=== PATIENT | female | born 1970 | race Caucasian/White ===

== ENCOUNTER → 2023-09-04 13:06 | Outpatient (CLI) | payer OTHER, SELFPAY ==
--- NOTE | 2023-09-04 13:08 | DI.MRI.S_ITS ---
PROCEDURE: MR KNEE RT WO CON INDICATIONS: rIGHT KNEE PAIN TECHNIQUE: Noncontrast sagittal PD fast spin echo and T2 fast spin echo with fat saturation, sagittal 3-D FLASH with fat saturation; coronal T1 spin echo and PD fast spin echo with fat saturation, and axial PD fast spin echo with fat saturation through the knee. COMPARISON: None. FINDINGS: Image quality: Excellent. Menisci: Peripheral displacement of medial meniscus bowing medial collateral ligament is seen. Complex tear involving body and posterior horn of medial meniscus is seen extending to both superior and inferior articulating surfaces. The lateral meniscus is intact.. The meniscal root ligaments appear intact. Cruciate ligaments: The anterior and posterior cruciate ligaments appear intact. Medial structures: The medial collateral ligament appears thickened with intrasubstance T2 hyperintense signal and surrounding soft tissue edema. Visualized portions of the pes anserinus tendons appear normal. No abnormal bursal fluid. Lateral structures: The lateral collateral ligament is thickened with intrasubstance T2 hyperintense signal. The long and short heads of the biceps femoris tendon appear intact. The popliteus tendon appears normal. Iliotibial band appears normal. Anterior structures: The quadriceps and patellar tendons appear intact. Patellar alignment is normal. No femoral trochlear dysplasia or ventral trochlear prominence. No edema in the infrapatellar fat pad. Bones and cartilage: No bone marrow contusions or fractures. 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 Joint space: There is moderate knee joint fluid. No Marcial's cyst. Normal appearing synovial plicae are incidentally noted. IMPRESSION: 1. Complex tear involving body and posterior horn of medial meniscus extending to both superior and inferior articulating surfaces. The lateral meniscus is intact. 2. The cruciate ligaments are intact. 3. Low to moderate grade MCL and LCL sprain/partial-thickness tear. No full-thickness ligament rupture. 4. [id number] tricompartmental osteoarthritis and chondromalacia most notably in medial femoral tibial compartment. No fracture or dislocation. Moderate joint effusion, no gross loose bodies. Dictated by: Arnulfo Otero M.D. on 09/04/2023 at 21:30 Approved by: Arnulfo Otero M.D. on 09/04/2023 at 21:34
== END ==
LOC: MRI 13:07
PROVIDERS: Referring Provider Orthopaedic Surgery; Visit Provider Orthopaedic Surgery
DX: S83.231A Complex tear of medial meniscus, current injury, right knee, initial encounter (principal); S83.411A Sprain of medial collateral ligament of right knee, initial encounter; S83.421A Sprain of lateral collateral ligament of right knee, initial encounter; M17.11 Unilateral primary osteoarthritis, right knee; M94.261 Chondromalacia, right knee; M25.461 Effusion, right knee; M25.561 Pain in right knee
CPT/HCPCS: 73721

== ENCOUNTER → 2024-10-14 06:58 | Outpatient (CLI) | payer OTHER, SELFPAY ==
--- NOTE | 2024-10-14 06:59 | DI.US.S_ITS ---
PROCEDURE: US PELVIC COMPLETE INDICATIONS: POSTMENOPAUSAL BLEEDING. HORMONE REPLACEMENT THERAPY. TECHNIQUE: Real-time scanning was performed of the pelvic organs, with image documentation. Additional endovaginal scanning was necessary due to incomplete visualization of the adnexal and endometrial structures by transabdominal scanning. COMPARISON: None. FINDINGS: Uterus: Uterus is retroverted and normal in size at 6.2 x 4.2 x 3.5 cm. The myometrium is heterogeneous which is nonspecific may be related to leiomyomatous uterus, adenomyosis or other process. The endometrium echo complex is not well visualized, per notes. Ovaries: The bilateral ovaries are not visualized, per notes due to overlying bowel gas and patient body habitus. Other: No pathologic free abdominal or pelvic fluid. IMPRESSION: Limited exam, ovaries and endometrial echo complex not visualized per notes. Heterogeneous echogenicity of the uterine myometrium commonly leiomyomatous uterus, adenomyosis or other process. If symptoms persist or worsen, or there is high clinical suspicion of pelvic, uterine abnormality, CT or MRI could be performed. We strive to produce accurate, complete, and clear reports of imaging services. To assist us in improving patient care, this report was composed using standard report templates and voice recognition software. Therefore, it may contain abnormal punctuation, insertions and/or omissions. Occasional wrong-word or sound-alike substitutions may occur. Though we review the report and make efforts to correct it, we do recommend that the report be read carefully in proper context to recognize any text inaccuracies. Dictated by: Nehemiah Saleh M.D. on 10/14/2024 at 12:26 Approved by: Nehemiah Saleh M.D. on 10/14/2024 at 12:39
== END ==
PROVIDERS: PCP Nurse Practitioner; Referring Provider Student in an Organized Health Care Education/Training Program; Visit Provider Student in an Organized Health Care Education/Training Program
DX: N95.0 Postmenopausal bleeding (principal); Z79.890 Hormone replacement therapy
CPT/HCPCS: 76830; 76856